=== PATIENT | female | born 1965 | race Two or more races ===

== ENCOUNTER 2017-05-04 20:24 | Emergency (ER) | payer OTHER ==
[2017-05-05] MEDS ORDERED: PREDNISONE 20 MG TABLET PO ONE (00:32)
[2017-05-05] MEDS ORDERED: FAMOTIDINE 20 MG TABLET PO ONE (00:32)
--- NOTE | 2017-05-05 00:35 | ER Document Report ---
ED General - General Chief Complaint: Allergic Reaction Stated Complaint: POSSIBLE ALLERGIC REACTION Time Seen by Provider: 05/04/17 23:53 TRAVEL OUTSIDE OF THE [place] IN LAST 30 DAYS: No - HPI Patient complains to provider of: Allergic reaction Notes: Patient coming in for allergic reaction states symptoms started around 1600- 1800 prior to arrival. Patient states feels like her throat is itchy states similar symptoms before she ate red velvet cake. Patient denies any red velvet cake recently. Patient is visiting from [place]. Patient states she does have EpiPen's however did not use any took Benadryl and itching in her throat and itching of her extremities did improve. Patient obvious distress upon my entrance into examination room no airway compromise speaking o normally - Related Data Allergies/Adverse Reactions: coconut Allergy (Verified 05/05/17 01:23) Past Medical History - Social History Smoking Status: Unknown if Ever Smoked Family History: Reviewed & Not Pertinent Renal/ Medical History: Denies: Hx Peritoneal Dialysis Review of Systems - Review of Systems Constitutional: Other - Allergic reaction EENT: No symptoms reported Cardiovascular: No symptoms reported Respiratory: No symptoms reported Gastrointestinal: No symptoms reported Genitourinary: No symptoms reported Female Genitourinary: No symptoms reported Musculoskeletal: No symptoms reported Skin: No symptoms reported Hematologic/Lymphatic: No symptoms reported Neurological/Psychological: No symptoms reported Physical Exam - Vital signs Vitals: Temp Pulse Resp BP Pulse Ox 97.7 F 90 20 149/82 H 100 05/04/17 21:37 05/04/17 21:37 05/04/17 21:37 05/04/17 21:37 05/04/17 21:37 Interpretation: Normal - General General appearance: Appears well, Alert - HEENT Head: Normocephalic, Atraumatic Eyes: Normal Conjunctiva: Normal Cornea: Normal Pupils: PERRL Ears: Normal External canal: Normal Tympanic membrane: Normal Sinus: Normal Nasal: Normal Mouth/Lips: Normal Pharynx: Normal Neck: Normal - Respiratory Respiratory status: No respiratory distress Chest status: Nontender Breath sounds: Normal Chest palpation: Normal - Cardiovascular Rhythm: Regular Heart sounds: Normal auscultation Murmur: No - Abdominal Inspection: Normal Distension: No distension Bowel sounds: Normal Tenderness: Nontender Organomegaly: No organomegaly - Back Back: Normal, Nontender - Extremities General upper extremity: Normal inspection, Nontender, Normal color, Normal ROM , Normal temperature General lower extremity: Normal inspection, Nontender, Normal color, Normal ROM , Normal temperature, Normal weight bearing. No: Dimas's sign - Neurological Neuro grossly intact: Yes Cognition: Normal Orientation: AAOx4 [place] Coma Scale Eye Opening: Spontaneous [place] Coma Scale Verbal: Oriented [place] Coma Scale Motor: Obeys Commands [place] Coma Scale Total: 15 Speech: Normal Motor strength normal: LUE, RUE, LLE, RLE Sensory: Normal - Psychological Associated symptoms: Normal affect, Normal mood - Skin Skin Temperature: Warm Skin Moisture: Dry Skin Color: Normal Course - Re-evaluation Re-evalutation: 05/05/17 04:47 Patient says no signs of anaphylactic reaction at this time will discharge home with Pepcid instructions for use of Benadryl steroids patient encouraged to follow-up with your PCP upon returning to [place] - Vital Signs Vital signs: Temp Pulse Resp BP Pulse Ox 98.0 F 76 18 145/92 H 100 05/05/17 00:56 05/05/17 00:56 05/05/17 00:56 05/05/17 00:56 05/05/17 00:56 Discharge - Discharge Clinical Impression: Allergic reaction Qualifiers: Encounter type: initial encounter Qualified Code(s): T78.40XA - Allergy, unspecified, initial encounter Condition: Good Disposition: HOME, SELF-CARE Instructions: Acute Allergic Reaction ([facility]), Use of Diphenhydramine Additional Instructions: We will treat you for an acute allergic reaction. Please take the prednisone Pepcid and Benadryl as directed. Highly recommend that she continue to carry EpiPen with you at all times. Is very important to follow-up with your primary care physician for further evaluation of why he continued to have allergic reactions. Prescriptions: Epinephrine [Epipen] 0.3 mg IJ ONCE PRN #2 auto.injct PRN Reason: Famotidine [Pepcid 20 mg Tablet] 20 mg PO BID #14 tablet Prednisone [Deltasone] 60 mg PO DAILY 5 Days Forms: Return to Work
[2017-05-05 01:12] VITALS: BP 145/92
== END 2017-05-05 01:00 | disposition home or self-care (01) ==
LOC: ER 20:24
DX: T78.40XA Allergy, unspecified, initial encounter (principal); X58.XXXA Exposure to other specified factors, initial encounter
CPT/HCPCS: 99283; J7512